=== PATIENT | male | born 1960 | race Caucasian/White ===

== ENCOUNTER → 2016-10-12 | Outpatient (CLI) | payer OTHER ==
[~2016-10-12] MED LIST: BYSTOLIC5 MG PO; DIOVAN HCT 1601 EAC1 PO; LEVOTHROID (SY50 MCG PO; LYRICA 150MG C150 MG PO; NORCO 5-325 MG1 TAB PO; OXYCONTIN EXTEN20 MG PO; PAMELOR75 MG PO; PRAVACHOL40 MG PO; STOOL SOFTENER100 MG PO
== END | disposition disaster alternative care site (69) ==
LOC: GRAD 14:22
DX: M51.36 Other intervertebral disc degeneration, lumbar region (principal); M48.06 Spinal stenosis, lumbar region; Z98.890 Other specified postprocedural states